=== PATIENT | male | born 1995 | race Two or more races ===

== ENCOUNTER 2017-07-19 23:17 | Inpatient (IN) | payer SELFPAY ==
--- NOTE | 2017-07-19 23:27 | EDPHY ---
H & P Stated Complaint: lower back pain, nausea x10 days Time Seen by Provider: 07/19/17 23:27 HPI/ROS: HPI CHIEF COMPLAINT: Low back pain times 10 days. HISTORY OF PRESENT ILLNESS: Patient very pleasant 21-year-old male, he is otherwise healthy with no significant medical history presents emergency room with low back pain lumbar region. States had this discomfort times 10 days. He states it is worse when he goes to move. Or lay flat. 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 He denies any back injury but states he has had some low back discomfort times 10 days. No fever. No leg weakness. No saddle anesthesia. No bowel bladder incontinence. Patient denies fever. Denies direct back trauma. Denies radiation of pain. Past Medical History: Denies medical history except history of asthma Past Surgical History: Denies surgical history Social History: Denies daily use drugs alcohol tobacco. Family History: Noncontributory ROS REVIEW OF SYSTEMS: A comprehensive 10 point review of systems is otherwise negative aside from elements mentioned in the history of present illness. Exam Constitutional appears well nontoxic no acute distress, triage nursing summary reviewed, vital signs reviewed, awake/alert. Eyes normal conjunctivae and sclera, EOMI, PERRLA. HENT normal inspection, atraumatic, moist mucus membranes, no epistaxis, neck supple/ no meningismus, no raccoon eyes. Respiratory clear to auscultation bilaterally, normal breath sounds, no respiratory distress, no wheezing. Cardiovascular rate normal, regular rhythm, no murmur, no edema, distal pulses normal. Gastrointestinal soft, non-tender, no rebound, no guarding, normal bowel sounds, no distension, no pulsatile mass. Genitourinary no CVA tenderness. Musculoskeletal no significant midline lumbar tenderness on exam, mild tenderness paravertebral both sides, full range of motion, no calf swelling, no tenderness of extremities, no meningismus, good pulses, neurovascularly intact. No leg weakness. No saddle anesthesia. Skin pink, warm, & dry, no rash, skin atraumatic. Neurologic awake, alert and oriented x 3, AAOx3, moves all 4 extremities equally, motor intact, sensory intact, CN II-XII intact, normal cerebellar, normal vision, normal speech. Psychiatric normal mood/affect. Heme/Lymph/Immune no lymphadenopathy. Differential Diagnosis: Includes but is not limited to in a particular order lumbar back strain, annular tear, disc herniation, compression fracture, musculoskeletal strain, back strain, urinary tract infection Medical Decision Making: Plan for this patient lumbar spine x-ray, ibuprofen 800 mg, and check urinalysis re-evaluate. Re-evaluation: 1238AM: Lumbar spine reviewed of the back. No evidence of malalignment or compression fracture. Urinalysis reveals no signs of infection. He received 800 mg of p. o. Motrin is feeling much better. Will prescribe him 800 Motrin. Recommend ice pack, rest, no heavy lifting. Additionally should return emergency room if he has worsening symptoms includes worsening pain fever vomiting questions or concerns. Clinical exam is concerning for a musculoskeletal low back pain. Source: Patient - Personal History Current Tetanus/Diphtheria Vaccine: Yes Tetanus Vaccine Date: 2012 - Medical/Surgical History Hx Asthma: Yes Hx Chronic Respiratory Disease: No Hx Diabetes: No Hx Cardiac Disease: No Hx Renal Disease: No Hx Cirrhosis: No Hx Alcoholism: No Hx HIV/AIDS: No Hx Splenectomy or Spleen Trauma: No Other PMH: healthy - Social History Smoking Status: Never smoked Constitutional: Initial Vital Signs Temperature (C) 36.8 C 07/19/17 23:19 Heart Rate 102 H 07/19/17 23:19 Respiratory Rate 16 07/19/17 23:19 Blood Pressure 153/85 H 07/19/17 23:19 O2 Sat (%) 95 07/19/17 23:19 O2 Delivery Mode Room Air Allergies/Adverse Reactions: No Known Allergies Allergy (Unverified 05/09/10 09:38) Home Medications: Medication Instructions Recorded Ibuprofen [Motrin (*)] 800 mg PO Q6-8PRN #10 tab 07/19/17 Medical Decision Making - Diagnostics Imaging Results: Imaging Impressions Lumbar Spine X-Ray 07/19/17 23:35 Impression: No evidence for acute osseous abnormality lumbar spine. - Data Points Laboratory Results: 07/19/17 23:45 Urine Color YELLOW Urine Appearance CLEAR Urine pH 6.0 (5.0-7.5) Ur Specific Gracey 1.025 (1.002-1.030) Urine Protein NEGATIVE (NEGATIVE) Urine Ketones NEGATIVE (NEGATIVE) Urine Blood 2+ H (NEGATIVE) Urine Nitrate NEGATIVE (NEGATIVE) Urine Bilirubin NEGATIVE (NEGATIVE) Urine Urobilinogen 2.0 EU H EU (0.2-1.0) Ur Leukocyte Esterase NEGATIVE (NEGATIVE) Urine RBC 15-25 /hpf H /hpf (0-3) Urine WBC 1-3 /hpf /hpf (0-3) Ur Epithelial Cells NONE SEEN /lpf /lpf (NONE-1+) Urine Glucose NEGATIVE (NEGATIVE) Medications Given: Discontinued Medications Ibuprofen (Motrin) 800 mg PO EDNOW ONE Stop: 07/19/17 23:36 Last Admin: 07/19/17 23:44 Dose: 800 mg Departure - Departure Disposition: Home, Routine, Self-Care Clinical Impression: Back strain Qualifiers: Encounter type: initial encounter Qualified Code(s): S39.012A - Strain of muscle, fascia and tendon of lower back, initial encounter Condition: Good Instructions: Low Back Strain (ED) Additional Instructions: 1. Recommend you ice her back. Anti-inflammatory pain medicine as needed for pain control. 2. Return emergency room if you have worsening symptoms. 3. Take it easy over the next week. No heavy lifting. Referrals: NONE *PRIMARY CARE P,. [Primary Care Provider] - As per Instructions Prescriptions: Ibuprofen [Motrin (*)] 800 mg PO Q6-8PRN #10 tab
[2017-07-19] MEDS ORDERED: IBUPROFEN 800 MG TAB PO ONE (23:35)
[2017-07-20] MEDS ORDERED: NS 1,000 ML IV ONE (01:21)
[2017-07-20 01:51] LABS: PLATELET COUNT 83 10^3/uL (150-400)
[2017-07-20 01:59] LABS: INR 1.18 (0.83-1.16); PROTIME(PATIENT) 15.2 SEC (12.0-15.0)
[2017-07-20] MEDS ORDERED: ERTAPENEM 1 GM VIAL IV ONE (02:39)
[2017-07-20] MEDS ORDERED: HYDROmorphONE/DILAUDID 1 MG/ML INJ IVP PRN (05:06)
[2017-07-20] MEDS ORDERED: D5W 1/2 NS 1,000 ML IV SCH (05:30)
[2017-07-20 07:48] LABS: PLATELET COUNT 78 10^3/uL (150-400)
--- NOTE | 2017-07-20 11:14 | SOAPPROG ---
SOAP Progress Note Assessment/Plan: Assessment/Plan: 21 Y M admitted with progressive back pain x 10 days, free air , likely pneumatosis intestinalis. No bowel wall thickening. Elevated WBCs, elevated hepatic transaminases, normal bilirubin. +RBCs on UA. Abdominal exam is benign. Afebrile. Back pain improved. Doubt need for surgery. Continue clears for now. Will need to discuss further with Dr. Patricio. Consider medicine consult given lab abnormalities. Seen and examined by Dr. Patricio on admit earlier hours of the morning. S: no back or belly pain. no fevers or chills. no n/v. no dysuria. denies trauma. O: alert, nad no jaundice ctab rrr abd soft, nt, +BS 07/20/17 11:11 Objective: Vital Signs Temp Pulse Resp BP Pulse Ox 36.6 C 84 14 119/82 H 95 07/20/17 08:00 07/20/17 08:00 07/20/17 08:00 07/20/17 08:00 07/20/17 08:00 Laboratory Results 07/20/17 07:35 07/19/17 07/20/17 07/21/17 05:59 05:59 05:59 Intake Total 1050 Balance 1050 PT 15.2 SEC (12.0-15.0) H 07/20/17 01:30 INR 1.18 (0.83-1.16) H 07/20/17 01:30 ICD10 Worksheet Patient Problems: Problems Problem Status Onset Back strain Acute
[2017-07-20] MEDS ORDERED: IOPAMIDOL (ISOVUE-300) 100 ML BTL ONE (14:58)
[2017-07-20 16:35] LABS: PLATELET COUNT 79 10^3/uL (150-400)
[2017-07-20 16:48] LABS: INR 1.18 (0.83-1.16); PROTIME(PATIENT) 15.2 SEC (12.0-15.0)
[2017-07-20 17:01] LABS: HEPATITIS B SURFACE ANTIGEN NEGATIVE (NEGATIVE)
[2017-07-20 17:06] LABS: HEPATITIS A ANTIBODY IGM (BCH) NEGATIVE (NEGATIVE); HEPATITIS B CORE AB IGM NEGATIVE (NEGATIVE)
--- NOTE | 2017-07-20 17:15 | ASMTCMCOM ---
CM Note CM Note Notes: 07/20/2017 Case Management Note Discussed case with RN and Divina from [facility]. Pt admitted for pneumotosis and back pain for the last 10 days. Pt was screened for Medicaid and will provide income amount to [facility] to complete the application. Pt lack of insurance will limit d/c supports and resources. 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 Case Management d/c poc: independent with follow up as directed. Case Management available if needs change. Date Signed: 07/20/2017 02:52 PM Electronically Signed By:Vicky Masters RN
[2017-07-20 17:18] LABS: HEPATITIS C ANTIBODY TOTAL NEGATIVE (NEGATIVE)
--- NOTE | 2017-07-20 17:41 | PDGENHP ---
History & Physical Chief Complaint: back pain History of Present Illness: male with free air in pericecal area RLQ opposite from his vague back pain. wbc 24k but no fever, some diarhea over nite but no emesis or trauma. no other family members sick. admit for obs but no present tenderness. risks and options fully discussed Pertinent Past, Social, Family History: pmh: negative with no hospitalizations or surgery. fam hx noncontributory. meds none. NKA. ROS: - on full 10 point review/ nonsmoker/ no weight loss or nite sweats Relevant Physical Exam: gen healthy 21 male in no acute distress, afebrile. heent nonicteric/ perrla/no nodes, no oral lesions. neck supple, nontender and no thyromegaly. cor rr. chest clear. abd soft, nontender with +bs, no ernias. gen: wnl. extrem full rom and pulses, no adenopathy. neuro symmetric. psych lert, oriented, cooperative Cardiorespiratory Assessment: imp: free air probably 2/2 pneumatosis of uncertain etiology. no peritonitis. plan admit for obs and IM consult
[2017-07-20 17:42] LABS: HIV TYPE 1 AND 2 NEGATIVE (NEGATIVE)
--- NOTE | 2017-07-20 18:46 | GCON ---
[f rep st] CONSULTATION INTERNAL MEDICINE CONSULTATION DATE OF CONSULTATION: 07/20/2017 REFERRING PHYSICIAN: Francis Patricio MD REASON FOR REFERRAL: Evaluation of abnormal CBC. HISTORY OF PRESENT ILLNESS: The patient is a healthy 21-year-old man. He has had about a week-to-10 days of malaise and myalgias. He said 10 days ago he started feeling bad. He started having some l ow back pain, primarily at night while he was sleeping. He was been more fatigued than usual over e past week. He has also noted some mild shoulder discomfort and some abdominal discomfort. He has had positive fevers and chills intermittently, but has not actually taken his temperature. He has dodd d no weight changes, no night sweats, no headache, no vision, hearing, or speech issues. He denies a ny chest pain. He did have an episode of shortness of breath the other day. No diarrhea or urinary symptoms. No other joint swelling or pain. No other neurologic signs or symptoms. Patient came to the hospital and had a CT of his abdomen and pelvis done, which did show some pneumat osis and was admitted by General Surgery for observation. His abdominal exam has been overall benign , and they are just observing him and started feeding him today. REVIEW OF SYSTEMS: A 10-point review of systems was done and is negative except as stated in the HPI . PAST MEDICAL HISTORY: Negative. PAST SURGICAL HISTORY: Negative. MEDICATIONS: None. FAMILY HISTORY: Negative. SOCIAL HISTORY: He is single. 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 He does not smoke. He drinks about 3 beers per day only on the weekends. He does not smok e marijuana or use any other recreational drugs. PHYSICAL EXAMINATION: VITAL SIGNS: Afebrile. Heart rate 84 blood pressure 119/92, respirations 14, 95% in room air. GENERAL: A very well-developed, well-nourished 21-year-old man in no distress. A lert and oriented. Speech is fluent. HEENT: Pupils are equal. Extraocular movements intact. Muco us membranes are moist. Oropharynx is clear. NECK: Supple. No adenopathy. HEART: Regular rate a nd rhythm. No murmur, gallop, or rub. LUNGS: Clear to auscultation. No wheeze, rhonchi, or rales. LYMPHATICS: No axillary or inguinal lymph nodes noted. ABDOMEN: Soft. He has some very mild ten derness in the left upper quadrant and diffusely, but no guarding or rebound. EXTREMITIES: No clubb ing, cyanosis, or edema. : Normal testicles without masses. MUSCULOSKELETAL: No joint deformiti es, effusions, or pain. SKIN: Intact. No rash. PSYCHOLOGIC: Normal. LABORATORY DATA: CBC shows a white count of 25.23, hemoglobin normal, platelet count low at 78; neut rophils, 5.5% with 80.2% lymphocytes, and 3+ atypical lymphocytes. Smear review by pathology noted a bout 35% blasts and abnormal lymphocytes. Coags are normal. Chemistry shows normal electrolytes and renal function. LFT show an AST of 75 and an ALT of 171. Urinalysis is positive for some hematuria . Abdominal and pelvic CT scan showed pneumatosis of an otherwise unremarkable ascending colon and a sm all amount of adjacent free air with nonspecific adenopathy and splenomegaly, and an enlarged and fat ty liver. ASSESSMENT AND PLAN: A 21-year-old presents with diffuse myalgias, low back pain, and some abdominal discomfort with an abnormal CT scan and CBC. Upon further review of the CBC, the patient has a sign ificant number of blasts and abnormal lymphocytes and a possibility of acute lymphocytic leukemia. I discussed the case in detail with Dr. Courtney Pike on-call with Hematology. She will see the patie nt in consultation. In the meantime, I will order some further testing. I will get tumor lysis labs , including LDH, uric acid, and phosphorus. I will check a DIC panel. I will check viral titers inc luding hepatitis B and C, HIV, CMV, and EBV. I will check a flow cytometry, and I will also check a CT of the chest to look for any mediastinal masses. I did discuss this briefly with the patient. He is aware of the possible diagnosis and is agreeable with the plan. Thank you for the consultation. I will continue to follow along with the patient. Warning signs wou ld be for worsening infection. Will need to watch for any signs of fever or neurologic signs or symp toms to consider an MRI of the brain. /[id number]/MODL
--- NOTE | 2017-07-21 07:53 | SOAPPROG ---
SOAP Progress Note Assessment/Plan: Assessment/Plan: 21 Y M admitted with progressive back pain x 10 days, free air , likely pneumatosis intestinalis. No bowel wall thickening. Elevated WBCs, elevated hepatic transaminases, normal bilirubin. +RBCs on UA. Abdominal exam continues to be benign. Will advance to regular diet. Appreciate medicine input and involvement of oncology. Possibly ALL. Will continue to follow but may ask medicine to take over primary care for this stay. Available for port if needed. Doubt need for abdominal surgery. S: no back or belly pain. no fevers or chills. passing gas. O: alert, nad no jaundice ctab rrr abd soft, nt, +BS 07/21/17 07:51 Objective: Vital Signs Temp Pulse Resp BP Pulse Ox 36.7 C 96 14 132/82 H 94 07/21/17 07:16 07/21/17 07:16 07/21/17 07:16 07/21/17 07:16 07/21/17 07:16 Laboratory Results 07/20/17 16:15 07/20/17 07/21/17 07/22/17 05:59 05:59 05:59 Intake Total 1050 3200 Balance 1050 3200 PT 15.2 SEC (12.0-15.0) H 07/20/17 16:15 INR 1.18 (0.83-1.16) H 07/20/17 16:15 ICD10 Worksheet Patient Problems: Problems Problem Status Onset Back strain Acute
[2017-07-21] MEDS ORDERED: LIDOCAINE 1% 5 ML SDV NB ONE (10:45)
[2017-07-21 10:55] LABS: PLATELET COUNT 81 10^3/uL (150-400)
[2017-07-21] MEDS ORDERED: LORazepam 2 MG/ML INJ ONE ×2 (11:34→11:37)
--- NOTE | 2017-07-21 11:40 | GCON ---
[f rep st] CONSULTATION NEW PATIENT CONSULT REFERRING PHYSICIAN: Reynold Sullivan MD REASON FOR CONSULTATION: Abnormal CBC with evidence of blasts on peripheral smear. HISTORY OF PRESENT ILLNESS: The patient is a very pleasant 21-year-old gentleman with no significant past medical history, who presented to the emergency room on 07/19/2017 with complaints of low back pain. On his workup, he had a lumbar spine x-ray, which showed no evidence for acute osseous abnormality. He then had an abdominal/pelvis CT, probably due to the description of the pain, which showed pneumatosis of the otherwise unremarkable ascending colon, with a small amount of adjacent free air. Nonspecific adenopathy was noted, as well as splenomegaly and large fatty liver. Surgery was consulted. The pain seemed actually localized on the opposite side of the abdomen. He reported this back pain for 10 days and denies any diarrhea or constipation. Surgery felt consistent with pneumatosis intestinalis, no bowel wall thickening, but on workup, he was noted to have an abnormal CBC. The most recent CBC from yesterday shows a white blood cell count of 25,000. Hemoglobin is normal at 14.3, hematocrit 40.9, MCV of 86, platelet count of 78, 000. He had elevated lymphocytes initially, and yesterday on peripheral blood smear review, he was noted to have 35% blasts. Pathology review showed abnormal lymphocytes. We checked a DIC panel, which is essentially normal. Fibrinogen 367. Lactic acid 1.5. He does have an elevated uric acid at 9.8. Sodium and potassium are normal. Phos is a little up at 5. Total bilirubin 0.8, AST 75, ALT 171. His LDH was 2152. His urinalysis shows 2+ blood and 15-25 RBCs. Cytology is currently pending, as well as hepatitis panel, HIV, and CMV antibodies. EBV titers pending as well. The patient denies any recent illnesses. On review of systems, the patient denies any neurologic symptoms. Specifically , no visual changes, confusion, or headaches. He has had an intermittent cough , but denies production. He also reports increased shortness of breath. He did have vomiting this morning x1, but denies chronic nausea or vomiting. Denies chronic constipation or diarrhea. He denies any testicular mass and denies any current rashes. He does note to me that on a couple occasions he has awoke with drenching night sweats, but denies any fevers. PAST MEDICAL HISTORY: Essentially none. FAMILY HISTORY: Had a great aunt with breast cancer and a great uncle with lung cancer. SOCIAL HISTORY: He drinks occasionally on the weekends, about 5 beers over the weekend, but otherwise is not a heavy drinker. No tobacco or illicit drug use. 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 He lives in a trailer home in [facility] and currently is without insurance. MEDICATIONS: He takes no medications on a daily basis. PHYSICAL EXAM: VITAL SIGNS: Blood pressure 132/82, heart rate 96, respiration rate 14, O2 saturation 94% on room air. Temp is 36.7. He has been afebrile while here. GENERAL: He is a 21-year-old gentleman, robust appearing, not in acute distress. HEENT: Anicteric. He has some mild petechiae under his eyes that he thinks occurred after vomiting this morning. Otherwise, oropharynx is clear, without petechiae or other findings. HEART: Regular rate and rhythm. LUNGS: Clear to auscultation bilaterally. ABDOMEN: Soft, nontender. He does have an enlarged spleen, about 3 or 4 cm below the costophrenic margin. Liver was difficult to palpate, but I do not think this was markedly enlarged. Bowel sounds are positive. No rebound or guarding. EXTREMITIES: Lower extremities show no significant edema. NEUROLOGIC: Nonfocal. A and O x3. Moving all his extremities. Answering questions appropriately. : Exam shows normal male penis and normal testicles, right and left, with no abnormal mass. SKIN: No rash or petechiae. LABS: As mentioned above. ASSESSMENT: A 21-year-old gentleman with no significant past medical history, who presented with nonspecific low back pain. On routine workup, he was found to have an abnormal CBC with atypical lymphocytes and an increased amount of blasts on his peripheral smear concerning for acute leukemia. Further CT imaging with CT chest done yesterday shows moderate mediastinal lymphadenopathy measuring 2.3 x 2.1 cm. He also has mildly prominent bilateral axillary nodes. The constellation of the adenopathy, abnormal CBC, and fatigue, as well as bone pain is very concerning for acute lymphoblastic leukemia. Certainly, we cannot be assured of this until we get flow back or more characterization by bone marrow, which will be done today. He does have viral serologies pending, including hepatitis, HIV, and CMV. EBV is also pending, but I think this is highly unlikely to be acute mono given the other above-mentioned symptoms. In addition, his LDH and uric acid are elevated. PLAN: Plan at this time will be an expedited workup. He will be started on allopurinol today, 300 mg p.o. b.i.d., and will initiate steroids after bone marrow biopsy is done. Will continue IV fluid for aggressive hydration to keep urinary output at least 100 cc an hour. He will need a PICC line placed and an echocardiogram. I think we can possibly hold off on the PICC line until at least flow comes back positive for clonal population of cells. Bone marrow biopsy will be sent for comprehensive diagnostic testing, including cytogenetics and FISH testing. 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 We will continue to monitor back pain and consider imaging there if it recurs or continues. About 45 minutes was spent with patient and family, more than 50% of time counseling and coordinating care. /[id number]/MODL MTDIsacc
[2017-07-21] MEDS ORDERED: LORazepam 2 MG/ML INJ IVP ONE (12:00)
[2017-07-21] MEDS: ALLOPURINOL 300 MG TAB PO SCH ×2 (12:34→20:16)
--- NOTE | 2017-07-21 14:03 | ASMTCMCOM ---
CM Note CM Note Notes: Chart reviewed. Patient has pending bone marrow as suspicion exists for hematological malignancy.He is currently undergoing diagnostics. Plan to transfer to Oncology today. CM to follow. Needs: TBD Date Signed: 07/21/2017 02:02 PM Electronically Signed By:Gilma Lockhart RN
[2017-07-21] MEDS: NS 1,000 ML IV SCH ×2 (14:45→20:16)
--- NOTE | 2017-07-21 16:26 | ECHO ---
[email or web address] [address] [address] Main: [phone] Fax: Transthoracic Echocardiogram Name: KAYLEE STEWART MR#: [id number] Study Date: 07/21/2017 Study Time: 02:23 PM Date of : 1995 Age: 21 year(s) Height: 182.9 cm (72 in.) Weight: 97.52 kg (215 lb.) BSA: 2.2 m2 Gender: Male Examination: Echo Indication: baseline EF for leukemia induction Image Quality: Adequate Contrast: Requested by: Courtney Pike BP: 132 mmHg/82 mmHg Heart Rate: Rhythm: Indication: baseline EF for leukemia induction Procedure Staff Interpreter Translator: Rosaline Angulo RDCS Reading Physician: Requesting Provider: Measurements: Chambers Valvular Assessment AV/MV Valvular Assessment TV/PV Normal Normal Normal Name Value Range Name Value Range Name Value Range Ao Marissa (2D): 2.7 cm (1.4 cm-2.6 AV meanP mmHg ( - ) PV Vmax: 1.48 m/s (0.6 m/s-0.9 cm) KARIME (VTI): 2.6 cm ( - ) m/s) IVSd (2D): 0.8 cm (0.6 cm-1.1 MV E Vmax: 0.80 m/s ( - ) PV PGmax: 9 mmHg ( - ) cm) MV A Vmax: 0.68 m/s ( - ) LVDd (2D): 4.6 cm (4.2 cm-5.9 MV E/A: 1.18 ( - ) cm) MV PHT: 0.054 s ( - ) LVDs (2D): 2.9 cm (2.1 cm-4 cm) MVA (PHT): 4.1 s ( - ) LVPWd (2D): 0.8 cm (0.6 cm-1 cm) LVOTd 1.9 cm 1.9 cm mm LVEF (BP): 59 % (>=55 %) RVDd(2D): 2.4 cm (1.9 cm-3.8 cmmm) Continued Measurements: Chambers Valvular Assessment AV/MV Valvular Assessment TV/PV Name Value Name Value Name Value LADs: 3.1 cm MV DecTime: 197 m/s CVP (est.): 5 mmHg LADs Lon.9 cm MV E' Septal: 0.13 m/s LA Area: 12.8 cm2 MV E/E' Septal: 6.30 LA Volume: 33 ml MV E/E' Lateral: 5.10 LA Volume Index: 15.0 ml/m2 RA Area: 14.2 cm2 Patient: KAYLEE STEWART Study Date: 07/21/2017 Page 1 of 2 02:23 PM Additional Vessels Name Value Ao Ascendin.5 cm Inferior Vena Cava: 1.5 cm Findings: Left Ventricle: Normal size left ventricle. No LV hypertrophy. Normal global systolic LV function. EF is 59 %. No regional wall motion abnormality. Normal diastolic LV function. Right Ventricle: Normal size right ventricle. Normal RV function. Left Atrium: The left atrium is normal in size. Right Atrium: The right atrium is normal in size. Mitral Valve: The mitral valve is normal in appearance and function. Mild mitral valve regurgitation is present. No mitral stenosis is present. Aortic Valve: The aortic valve is normal in appearance and function. There is no aortic valve regurgitation. No aortic valve stenosis is present. Tricuspid Valve: The tricuspid valve is normal in appearance and function. Trivial tricuspid valve regurgitation. Pulmonic Valve: The pulmonic valve is normal in appearance and function. There is no pulmonic regurgitation seen. Aorta: The aorta is normal. Normal size aortic root measuring 2.7 cm. Normal size ascending aorta measuring 2.5 cm. IVC: The IVC is normal sized. Pericardium: No pericardial effusion. No pleural effusion. (No Signature Object) Patient: KAYLEE STEWART Study Date: 07/21/2017 Page 2 of 2 02:23 PM [id number]
--- NOTE | 2017-07-21 19:57 | HOSPPROG ---
Hospitalist Progress Note Assessment/Plan: Assessment: 21-year-old male presents with acute back pain, new diagnosis of hematologic malignancy Plan: 1. Hematologic malignancy. Acute, new problem this provider, further workup indicated. Evidenced by mediastinal lymphadenopathy, splenomegaly, hepatomegaly on chest CT, personally interpreted, as well as blasts on CBC -discussed with Dr. Courtney Pike, consultation appreciated, she reports that is likely the patient either has AML or ALL, and she has performed a bone marrow biopsy today to determine the exact type of myeloproliferative disorder -counseled patient and his family regarding this diagnosis as well as ongoing workup, and further treatment 2. Acute tumor lysis syndrome. Evidenced by elevated LDH, elevated uric acid, elevated phosphorus level -monitor laboratory values closely -initiate IV normal saline at 200 cc/hour -is a high risk condition needs close monitoring in the inpatient setting 3. Pneumatosis. Acute finding on abdominal CT on presentation, unclear whether this was the cause of his presenting back pain or an incidental finding -discussed with General surgery, they do not feel like the patient has a surgical abdomen and would like to transfer the patient's care from surgery service to Medicine, we will comply Diet. Regular Prophylaxis. High risk patient, Lovenox 40 Code. Full Disposition. Anticipated discharge uncertain, patient requires treatment for tumor lysis syndrome as well as likely initiation of chemotherapy for new diagnosis of myeloproliferative disorder. Subjective: no pain Objective: Vital Signs Temp Pulse Resp BP Pulse Ox 36.8 C 101 H 15 137/82 H 93 07/21/17 19:22 07/21/17 19:22 07/21/17 19:22 07/21/17 19:22 07/21/17 19:22 Laboratory Results 07/21/17 09:59 07/21/17 09:59 07/20/17 07/21/17 07/22/17 05:59 05:59 05:59 Intake Total 1050 3200 1860 Output Total 550 Balance 1050 3200 1310 PT 15.2 SEC (12.0-15.0) H 07/20/17 16:15 INR 1.18 (0.83-1.16) H 07/20/17 16:15 - Physical Exam Constitutional: no apparent distress, appears nourished, not in pain Ears, Nose, Mouth, Throat: moist mucous membranes, hearing normal, ears appear normal, no oral mucosal ulcers Cardiovascular: regular rate and rhythym, no murmur, rub, or gallop, No edema Respiratory: no respiratory distress, no rales or rhonchi, clear to auscultation , No respiratory distress Gastrointestinal: normoactive bowel sounds, soft, non-tender abdomen, hepatosplenomegally, No distension Neurologic: AAOx3 Psychiatric: interacting appropriately, not anxious, not encephalopathic, thought process linear Lymph, Heme, Immunologic: other (non-tender cervical LAD, no supraclavicular LAD ) ICD10 Worksheet Patient Problems: Problems Problem Status Onset Back strain Acute
[2017-07-22] MEDS: NS 1,000 ML IV SCH ×3 (01:09→23:48)
[2017-07-22] MEDS ORDERED: oxyCODONE IR 5 MG TAB PO PRN (03:54)
[2017-07-22] MEDS ORDERED: HYDROmorphONE/DILAUDID 1 MG/ML INJ IVP PRN (03:55)
[2017-07-22 05:41] LABS: PLATELET COUNT 75 10^3/uL (150-400)
[2017-07-22] MEDS: ALLOPURINOL 300 MG TAB PO SCH ×2 (08:37→22:28)
--- NOTE | 2017-07-22 08:51 | SOAPPROG ---
SOAP Progress Note Assessment/Plan: Assessment/Plan: 21 yo gentleman admitted w nonspecific low back pain CT abdomen showed pneumatosis og unclear etiology but CBC worrisome for atypical lymphocytes/increased blasts 1. Abnormal CBC - concern for acute leukemia vs lymphoma, specifically may be ALL w splenomegaly, mediastinal LAD, bone pain Bone marrow done yesterday and sent for comprehensive testing No acute EBV infection CMV+ so in future if needs blood products, will need to be irradiated but NOT CMV negative Hepatitis panel -ve Echo ok Pending flow to make preliminary dx LDH and uric acid elevated Cont allopurinol and IVF (can decrease to 100ml/hr) start pred 100mg daily today check tumor lysis labs daily (Phos, UA, CMP, LDH) will need PICC no e/o neuro involvement If ALL, plan pediatric protocol CALGB 08864 and admission will be lengthy given lack of insurance 2. left sided rib pain - CT chest done shows no destructive lesions started after echo yesterday VSS consider CXR today ?referred pain 3. thrombocytopenia - due to #1 Updates pt and mother today - still waiting for a final Dx 07/22/17 08:56 Subjective: Started to have left sided rib pain at 8pm yesterday "hurts to breath" Objective: Vital Signs Temp Pulse Resp BP Pulse Ox 37.4 C 96 16 120/79 94 07/22/17 08:06 07/22/17 08:06 07/22/17 08:06 07/22/17 08:06 07/22/17 08:06 Laboratory Results 07/22/17 05:15 07/22/17 05:15 07/21/17 07/22/17 07/23/17 05:59 05:59 05:59 Intake Total 3200 4554 Output Total 2600 Balance 3200 1954 PT 15.2 SEC (12.0-15.0) H 07/20/17 16:15 INR 1.18 (0.83-1.16) H 07/20/17 16:15 Gen - NAD HEENT - anicteric, no OP lesions CV - RRR Chest - CTAB, TTP over left lower ribcage Abd - softm NT, enlarged spleen Ext - no sig edema Neuro - nonfocal ICD10 Worksheet Patient Problems: Problems Problem Status Onset Back strain Acute
[2017-07-22] MEDS ORDERED: predniSONE 20 MG TAB PO SCH (09:00)
--- NOTE | 2017-07-22 10:34 | PDMN ---
Medical Necessity Medical necessity: Patient meets inpatient criteria per physician note and [facility] Medical Oncology [facility] (acute tumor lysis syndrome/elevated LDH, uric acid and phosphorus; acute hematologic malignancy/mediastinal lymphadenopathy, splenomegaly, hepatomegaly on chest CT and blasts on CBC; ongoing tachycardia; LOS > 2 midnights for IV NS at 200ml/hr; pending bone marrow results for likely ALL or AML with likely initiation of chemotherapy.)
--- NOTE | 2017-07-22 15:04 | ASMTCMCOM ---
CM Note CM Note Notes: Pt has a likely new hematological disorder. Bone marrow biopsy not back yet. Pt speaks [place] but his mother does not and prefers an light rail vehicle operator. Current plan is for pt to remain at [facility] for his 1st round of chemo. [facility] was brieflly considered but decision made to remain at [facility]. It is unclear if pt will qualify for emergency Medicaid. He needs to submit his next pay stub before decision made. Onc navigator Judith Hussein is working on getting a quirino for pt to cover his chemo expenses. Pt's name will also be submitted for a [employer] quirino. CM will contiue to follow to provide support and resources. Date Signed: 07/22/2017 03:03 PM Electronically Signed By:Jaida Valdivia LCSW
[2017-07-22] MEDS: LIDOCAINE 4%/MENTHOL 1% PATCH TD SCH (16:10)
--- NOTE | 2017-07-22 17:53 | HOSPPROG ---
Hospitalist Progress Note Assessment/Plan: Assessment: 21-year-old male presents with acute back pain, new diagnosis of hematologic malignancy Plan: 1. ALL. Based on BmBx results, hepatomegaly on chest CT -discussed with Dr. Courtney Pike, she reports extensive work today to determine best location of care for this patient, and it appears that he will best be served w/ chemotherapy at [facility], recommends port placement (d/w Dr. Patricio ) and likely initiation immediately thereafter 2. Acute tumor lysis syndrome. Evidenced by elevated LDH, elevated uric acid, elevated phosphorus level -monitor daily laboratory values closely -adjust NS to 100cc/hr -s/p pred 100mg today, allopurinol 3. Acute chest pain. New problem to this provider, further w/u indicated. Left side, suspect this is 2/2 muscular hematoma s/p echo probe, but w/ high-rate IVF need to r/o overload -CXR (personally interpreted) does not demonstrate CHF -given that his pain is reproducible on exam, and has responded to heat, recommend heat pad + lidoderm patch -CT w/ contrast (not a CTA) did not demonstrate PE, but if he becomes tachypneic or hypoxic, would rec CTA Diet. Regular Prophylaxis. High risk patient, Lovenox 40 Code. Full Disposition. 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 Subjective: ongoing L chest pain Objective: Vital Signs Temp Pulse Resp BP Pulse Ox 37.0 C 95 17 128/85 H 93 07/22/17 15:27 07/22/17 15:27 07/22/17 15:27 07/22/17 15:27 07/22/17 15:27 Laboratory Results 07/22/17 05:15 07/22/17 05:15 07/21/17 07/22/17 07/23/17 05:59 05:59 05:59 Intake Total 3200 4554 1000 Output Total 2600 1700 Balance 3200 1954 -700 PT 15.2 SEC (12.0-15.0) H 07/20/17 16:15 INR 1.18 (0.83-1.16) H 07/20/17 16:15 - Physical Exam Constitutional: no apparent distress, uncomfortable, No not in pain (mild), No chronically ill appearing Cardiovascular: tachycardia, No systolic murmur, No irregularly irregular, No edema Respiratory: no respiratory distress, no rales or rhonchi, clear to auscultation Gastrointestinal: normoactive bowel sounds, soft, non-tender abdomen, no palpable masses Skin: other (no ecchymoses L chest), No abrasion, No erythema, No rash Musculoskeletal: other (focal tenderness L intercostal, no pectoralis tenderness , full ROM R shoulder) Neurologic: AAOx3 Psychiatric: interacting appropriately, not anxious, not encephalopathic, thought process linear ICD10 Worksheet Patient Problems: Problems Problem Status Onset Back strain Acute
[2017-07-22] MEDS ORDERED: ceFAZolin 2 GM/SWFI 2 GM/20 ML SYR IVP ONE (18:29)
--- NOTE | 2017-07-22 18:29 | SOAPPROG ---
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 As discussed with Dr. Pike 07/22/17 18:28 Objective: Vital Signs Temp Pulse Resp BP Pulse Ox 37.0 C 95 17 128/85 H 93 07/22/17 15:27 07/22/17 15:27 07/22/17 15:27 07/22/17 15:27 07/22/17 15:27 Laboratory Results 07/22/17 05:15 07/22/17 05:15 07/21/17 07/22/17 07/23/17 05:59 05:59 05:59 Intake Total 3200 4554 1000 Output Total 2600 1700 Balance 3200 1954 -700 PT 15.2 SEC (12.0-15.0) H 07/20/17 16:15 INR 1.18 (0.83-1.16) H 07/20/17 16:15 ICD10 Worksheet Patient Problems: Problems Problem Status Onset Back strain Acute
[2017-07-22] MEDS ORDERED: PATCH REMOVAL 1 EA PATCH TD SCH (21:00)
[2017-07-23 05:19] LABS: PLATELET COUNT 89 10^3/uL (150-400)
[2017-07-23] MEDS ORDERED: LR 1,000 ML IV ONE (07:57)
[2017-07-23] MEDS ORDERED: BUPIVACAINE 0.5% 30 ML SDV ONE (07:58)
[2017-07-23] MEDS ORDERED: ceFAZolin 2 GM/SWFI 20 ML SYR IVP ONE (08:07)
[2017-07-23] MEDS ORDERED: MIDAZOLAM 2 MG/2 ML VIAL IVP ONE (08:52)
--- NOTE | 2017-07-23 08:52 | PDHPUP ---
History & Physical Update H&P update statement: This history and physical update is based on an assessment of the patient which was completed after admission or registration (within 24 hours), but prior to the surgery/procedure. H&P update: H&P reviewed & patient examined, no change in patient's condition since H&P completed
--- NOTE | 2017-07-23 08:53 | PDANEPAE ---
ANE Past Medical History - Pulmonary History Hx Oxygen in Use at Home: No Hx Sleep Apnea: No Sleep Apnea Screening Result - Last Documented: Negative - Endocrine History Hx Diabetes: No ANE Review of Systems Review of Systems: ANE Patient History - Allergies Allergies/Adverse Reactions: No Known Allergies Allergy (Unverified 05/09/10 09:38) - NPO status NPO Since - Liquids (Date): 07/22/17 NPO Since - Liquids (Time): 23:00 NPO Since - Solids (Date): 07/22/17 NPO Since - Solids (Time): 19:00 - Anes Hx Anes Hx: no prior problems - Smoking Hx Smoking Status: Never smoked ANE Labs/Vital Signs - Labs Result Diagrams: 07/23/17 04:12 07/23/17 04:12 - Vital Signs Blood Pressure: 127/71 Heart Rate: 89 Respiratory Rate: 16 O2 Sat (%): 95 Height: 182.88 cm Weight: 97.7 kg ANE Physical Exam - Airway Neck exam: FROM Mallampati Score: Class 1 Mouth exam: normal dental/mouth exam - Pulmonary Pulmonary: no respiratory distress, no rales or rhonchi, clear to auscultation - Cardiovascular Cardiovascular: regular rate and rhythym, no murmur, rub, or gallop - ASA Status ASA Status: III ANE Anesthesia Plan Anesthesia Plan: GA with mask
[2017-07-23] MEDS ORDERED: PROPOFOL 200 MG/20 ML VIAL ONE ×3 (08:56→09:33)
[2017-07-23] MEDS ORDERED: fentaNYL 100 MCG/2 ML INJ ONE (08:56)
[2017-07-23] MEDS ORDERED: predniSONE 20 MG TAB PO SCH (09:00)
[2017-07-23] MEDS ORDERED: ONDANSETRON 4 MG/2 ML VIAL IVP PRN (09:00)
[2017-07-23] MEDS ORDERED: NALOXONE HCL 0.4 MG/ML INJ IVP PRN (09:00)
[2017-07-23] MEDS ORDERED: oxyCODONE IR 5 MG TAB PO PRN (09:00)
[2017-07-23] MEDS ORDERED: fentaNYL 100 MCG/2 ML INJ IVP PRN (09:00)
[2017-07-23] MEDS ORDERED: ACETAMINOPHEN 500 MG TAB PO PRN (09:00)
[2017-07-23] MEDS ORDERED: PROMETHAZINE HCL 25 MG/ML INJ IVP PRN (09:00)
[2017-07-23] MEDS ORDERED: LR 500 ML IV PRN (09:00)
[2017-07-23] MEDS ORDERED: SODIUM BICARBONATE 10 MEQ/10 ML SYR IVP ONE (09:03)
[2017-07-23] MEDS: LIDOCAINE 1% 300 MG/30 ML SDV ONE ×2 (09:28→10:11)
--- NOTE | 2017-07-23 09:29 | SOAPPROG ---
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 As discussed with Dr. Pike 07/22/17 18:28 07/23/17 09:06 DOING OK. ABD SOFT, NONTENDER/ AFEBRILE/ FOR PORT TODAY/ RISKS AND OPTIONS FULLY DISCUSSED Objective: Vital Signs Temp Pulse Resp BP Pulse Ox 36.6 C 89 16 127/71 H 95 07/23/17 05:57 07/23/17 08:53 07/23/17 08:53 07/23/17 08:53 07/23/17 08:53 Laboratory Results 07/23/17 04:12 07/23/17 04:12 07/22/17 07/23/17 07/24/17 05:59 05:59 05:59 Intake Total 4554 1000 Output Total 2600 3100 Balance 1954 -2100 PT 15.2 SEC (12.0-15.0) H 07/20/17 16:15 INR 1.18 (0.83-1.16) H 07/20/17 16:15 ICD10 Worksheet Patient Problems: Problems Problem Status Onset Back strain Acute
[2017-07-23] MEDS ORDERED: BACITRACIN ZINC 14.2 GM OINTTUBE TP ONE (09:54)
--- NOTE | 2017-07-23 09:59 | POSTOPPROG ---
Post Op Note Date of Operation: 07/23/17 Surgeon: Francis Patricio Anesthesiologist: campbell Anesthesia: IV Sedation Pre-op Diagnosis: leukemia Post-op Diagnosis: same Indication: chemo access Procedure: left subclavian port with flouro Findings: good position and flow Inf/Abcess present in the surg proc area at time of surgery?: No Depth: Deep Incisional (Fascial) EBL: Minimal Complications: 0
[2017-07-23] MEDS ORDERED: HYDROCODONE/APAP 5/325 TAB PO PRN (10:02)
--- NOTE | 2017-07-23 10:09 | POSTANESTH ---
Post Anesthetic Evaluation Cardiovascular Status: Normal, Stable, Similar to Pre-Op Cond Respiratory Status: Normal, Stable, Similar to Pre-op Cond. Level of Consciousness/Mental Status: Can Participate in Eval, Mildly Sleepy, Arousable Pain Control: Adequate, Prn Tx Ordered Nausea/Vomiting Control: Adequate, Prn Tx Ordered Complications Possibly Related to Anesthesia: None Noted
[2017-07-23] MEDS: ALLOPURINOL 300 MG TAB PO SCH (11:20)
[2017-07-23] MEDS: LIDOCAINE 4%/MENTHOL 1% PATCH TD SCH ×2 (11:25→14:45)
--- NOTE | 2017-07-23 13:12 | SOAPPROG ---
SOAP Progress Note Assessment/Plan: Assessment/Plan: 21 yo gentleman admitted w nonspecific low back pain dx w ALL 1. Abnormal CBC - Dx of acute lymphoblastic leukemia; FISH and molecular studies pending [facility] CMV+ so in future if needs blood products, will need to be irradiated but NOT CMV negative Hepatitis panel -ve Echo ok, Port placed LDH and uric acid elevated but declining Cont allopurinol and IVF (can decrease to 100ml/hr) pred stopped check tumor lysis labs daily (Phos, UA, CMP, LDH) no e/o neuro involvement If ALL, plan pediatric protocol CALGB 97824 vs clinical trial 2. left sided rib pain - CT chest done shows no destructive lesions better today VSS consider CXR today if worsens 3. thrombocytopenia - due to #1 over an hour spent w pt and other care coordinators 07/23/17 13:18 Subjective: No acute events MediPORT placed Objective: Vital Signs Temp Pulse Resp BP Pulse Ox 36.7 C 89 16 106/59 L 97 07/23/17 10:05 07/23/17 08:53 07/23/17 10:31 07/23/17 10:31 07/23/17 11:06 Laboratory Results 07/23/17 04:12 07/23/17 04:12 07/22/17 07/23/17 07/24/17 05:59 05:59 05:59 Intake Total 4554 1000 1000 Output Total 2600 3100 15 Balance 1954 -2100 985 PT 15.2 SEC (12.0-15.0) H 07/20/17 16:15 INR 1.18 (0.83-1.16) H 07/20/17 16:15 no change in exam today ICD10 Worksheet Patient Problems: Problems Problem Status Onset Back strain Acute
--- NOTE | 2017-07-23 14:18 | PDDCSUM ---
Discharge Summary Discharge Summary: DISCHARGE SUMMARY FOLLOW-UP ITEMS: 1. FISH and molecular studies pending DATE OF ADMISSION: 07/19/2017 DATE OF DISCHARGE: 07/23/2017 DISCHARGE DIAGNOSES: 1. New diagnosis of acute lymphoblastic leukemia 2. Acute tumor lysis syndrome 3. Suspected muscular pain left chest CONSULTATIONS: Oncology, General surgery PROCEDURES / IMAGING: Port placed 07/23/[address] of the abdomen demonstrating possible pneumatosis, does not correlate with clinical exam, has splenomegaly, hepatomegaly, mediastinal lymphadenopathy CT of the chest with IV contrast did not demonstrate pulmonary emboli CHIEF COMPLAINT: Acute back pain SUBJECTIVE: Patient's back pain is feeling symptomatically better, he continues to have left -sided anterior chest discomfort intermittently PHYSICAL EXAM ON DISCHARGE: Systolic blood pressure 110-130, heart rate 80-110, afebrile overnight, satting well on room air, net -2.1 L, mild tenderness over the left anterolateral chest intercostals, lungs are clear to auscultation bilaterally, alert awake oriented x3, no erythema, no induration, no tenderness around the port site LABS ON DISCHARGE: Uric acid 5.9, phosphorus 5.5, LDH 1200, ALT 130, AST 50, creatinine 0.8, BUN 15 , potassium 5.7, platelets 00101, hemoglobin 13.3, white blood count 5,400 HOSPITAL COURSE BY PROBLEM: 1. New diagnosis of acute lymphoblastic leukemia. The patient originally presented with back pain, most likely secondary to symptomatic splenomegaly, but originally found to have pneumatosis on abdominal CT and was admitted to the general surgery service for serial abdominal exams and monitoring. His clinical exam did not correlate to intra-abdominal perforation and no surgical intervention was required. Is not entirely clear why there was pneumatosis on his abdominal CT but no bowel perforation is suspected. That being said, his chest and abdomen CTs did demonstrate significant mediastinal lymphadenopathy, hepatomegaly, splenomegaly, and he had significant leukocytosis, thrombocytopenia as well as evidence of tumor lysis syndrome. Consequently, the patient was evaluated by Oncology, underwent a bone marrow biopsy, and his pathology came back consistent with acute lymphoblastic leukemia. His FISH and molecular studies are currently pending. Additional workup included CMV positive, so in the future if the patient is blood products, he will need to be irradiated but not CMV negative. His acute hepatitis panel was also negative. He had a port placed in preparation for chemotherapy. Echocardiogram was performed which demonstrated normal ejection fraction. Our oncology provider coordinated care with [facility] [[email or web address]], and the decision was made to transfer the patient to [facility] [[email or web address]] to receive ongoing care. This was approved by the receiving facilities oncologist. The current pediatric protocol includes CALGB 03940 versus clinical trial. 2. Acute tumor lysis syndrome. Evidenced by significantly elevated LDH, phosphorus, uric acid, potassium, most likely secondary to acute lymphoblastic leukemia. The patient was treated with high rate IV fluids up to 200 cc/hour, as well as allopurinol and prednisone. The patient's last dosage of prednisone was on 07/22. His IV fluids have been turned down to 100 cc/hour. His tumor lysis labs have been improving and should be monitored daily moving forward. 3. Suspected muscular pain. Patient has some pain in his left anterolateral chest which has developed after receiving echocardiogram, and is reproducible on physical exam in the lateral intercostals. I suspect that this is muscular contusion in the setting of pressure and thrombocytopenia, and the patient has responded supportively with a heating pad as well as Lidoderm patch. Consideration was made as to whether this could be symptomatic pulmonary embolism, in the setting of malignancy, but the patient is currently not hypoxic , not tachypneic, and his intermittent tachycardia is felt to be secondary to pain rather than secondary to venous thromboembolism. Additionally, the patient did have IV contrast with his CT scan of his chest, and no venous thromboembolism was found. If the patient does begin experiencing hypoxia or tachypnea, would recommend dedicated CT angio study. DISCHARGE MEDICATIONS: Please see official discharge medication reconciliation sheet in chart , continue allopurinol, IV fluids, pain medications, steroids at the discretion of the accepting team. DISCHARGE INSTRUCTIONS: Please begin chemotherapy as soon as deemed clinically possible. TIME SPENT: Greater than 30 minutes were spent on direct patient care, as well as discharge planning and preparation.
[2017-07-23 14:31] VITALS: BP 124/79
--- NOTE | 2017-07-23 15:14 | ASMTLACE ---
LACE Length of stay for Answers: 3 days current admission Comorbidities - select Answers: Any tumor (including all that apply lymphoma or leukemia) Other Notes: h/o asthma # of Emergency department Answers: 1-2 visits in the last 6 months Score: 7 Date Signed: 07/23/2017 03:13 PM Electronically Signed By:Zee Lovelace RN
--- NOTE | 2017-07-25 17:59 | GOP ---
[f rep st] OPERATIVE REPORT DATE OF OPERATION: 07/23/2017 SURGEON: Francis Patricio MD PRODUCTION CONTROLLER: There was no minister assistant. PREOPERATIVE DIAGNOSIS: Leukemia. POSTOPERATIVE DIAGNOSIS: Leukemia. PROCEDURE PERFORMED: Left subclavian port placement with fluoroscopic guidance. FINDINGS: Patient was found with good catheter position and good flow. DESCRIPTION OF PROCEDURE: Patient was taken to the operating room where he received satisfactory gen eral laryngeal mask anesthesia by Dr. Trejo. He was placed in supine position, prepped and draped in the usual sterile fashion. Using 0.5% Marcaine local infiltration, a direct left subclavian stick w as made. A guidewire was introduced. Position was confirmed with fluoroscopy. A subcu pocket was m victor manuel in the 2nd intercostal space. Port tubing was passed from that pocket to the subclavian insertio n site. It was trimmed to the appropriate length using fluoroscopic guidance and then introduced via the introducer sheath and dilator system into the right atrium. Good backflow was achieved. The ca theter was flushed with heparin saline, and the port was secured to the fascia with 3-0 Vicryl. Pock et was closed with 3-0 Vicryl for the subcu and 4-0 Prolene subcuticular stitch for the skin. The en trance site was closed with a 4-0 Prolene mattress suture. All areas had been infiltrated with 0.5% Marcaine. Tolerated procedure well. Taken to recovery room in good condition. No complications. Had appropriate vital signs. /[id number]/MODL
== END 2017-07-23 15:00 | disposition designated cancer center or children's hospital (05) | DRG 834 ==
LOC: OBSVTOIN 07-20 02:41 → INTOOBSV 07-20 02:41 → F2W 07-20 03:23 → F1N 07-21 16:06
PROVIDERS: ADMIT Surgery; ATTEND Internal Medicine
PROC: 07DR3ZX Extraction of Iliac Bone Marrow, Percutaneous Approach, Diagnostic (ICD-10-PCS; 2017-07-21)
PROC: 02H633Z Insertion of Infusion Device into Right Atrium, Percutaneous Approach (ICD-10-PCS; principal; 2017-07-23 08:30)
PROC: 0JH60WZ Insertion of Totally Implantable Vascular Access Device into Chest Subcutaneous Tissue and Fascia, Open Approach (ICD-10-PCS; principal; 2017-07-23 08:30)
DX: C91.00 Acute lymphoblastic leukemia not having achieved remission (principal); E88.3 Tumor lysis syndrome; R07.89 Other chest pain; K63.89 Other specified diseases of intestine; D69.59 Other secondary thrombocytopenia
CPT/HCPCS: 85060-90; 86644-90; 86664-90; 86665-90; 88184-90; 88185-91; 88237-90; 88262-90; 96374; C1788; G0378; G0472; J0690; J1170; J1335; J1642; J2060; J2250; J2704; J3010; J7512; Q9967

== ENCOUNTER 2018-04-21 17:47 | Emergency (ER) | payer MEDICAID, OTHER ==
--- NOTE | 2018-04-21 18:19 | EDPHY ---
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 About 3 hr ago today developed diffuse joint pains including between his shoulder blades and back, in his elbows and joints and knees and in his groin. Not associated with vomiting or diarrhea or chest pain or shortness of breath. REVIEW OF SYSTEMS: Eye: no change in vision ENT: no sore throat Cardiac: no chest pain or syncope Pulmonary: no cough or SOB Abdomen: no vomiting, diarrhea, abdominal pain Musculoskeletal: HPI Skin: no rash Neuro: no headache Constitutional: no fever : no urinary symptoms A comprehensive 10 point review of systems is otherwise negative aside from elements mentioned in the history of present illness. 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 Eyes: No scleral icterus. ENT, Mouth: Normal mucous membranes. Respiratory: Normal respiratory effort, breath sounds equal, lungs are clear to auscultation. Cardiovascular: Regular rate and rhythm. Gastrointestinal: Abdomen is soft and non tender. Neurological: Alert, face symmetric, normal motor and sensory in extremities. Skin: Warm and dry, no rashes. Port in place and site is clean dry and intact. Musculoskeletal: Does not have joint swelling or effusion, ambulatory. Psychiatric: Not agitated. Emergency Department course/MDM: Heart rate noted 111 afebrile. Dilaudid 0.5, saline hydration, labs to include CBC and comprehensive panel. 824pm: discussed with [facility] oncology, Dr. Larios, recommends discharge if CK not elevated. 0: CPK normal, results discussed with the patient, discharge home with oral oxycodone, no nonsteroidals. He says he feels better at this time. Noted to be neutropenic but not febrile. Smoking Status: Never smoked Constitutional: Initial Vital Signs Temperature (C) 36.7 C 04/21/18 18:00 Heart Rate 111 H 04/21/18 18:00 Respiratory Rate 18 04/21/18 18:00 Blood Pressure 115/97 H 04/21/18 18:00 O2 Sat (%) 92 04/21/18 18:00 O2 Delivery Mode Nasal Cannula O2 (L/minute) 2 Allergies/Adverse Reactions: No Known Allergies Allergy (Unverified 04/21/18 17:58) Home Medications: Medication Instructions Recorded oxyCODONE IR [Oxycodone Ir (*)] 5 mg PO Q4HRS PRN tab 07/23/17 Advil 04/21/18 Flexeril 10 MG (*) 04/21/18 Tylenol 04/21/18 Medical Decision Making Differential Diagnosis: Differential considered including but not limited to medication side effect, rhabdomyolysis, tumor lysis syndrome, metabolic abnormality - Data Points Laboratory Results: Laboratory Results 04/21/18 18:50 04/21/18 18:50 04/21/18 04/21/18 04/21/18 18:50 18:50 16:50 WBC 1.66 10^3/uL L 10^3/uL (3.80-9.50) RBC 3.40 10^6/uL L 10^6/uL (4.40-6.38) Hgb 11.6 g/dL L g/dL (13.7-17.5) Hct 33.4 % L % (40.0-51.0) MCV 98.2 fL fL (81.5-99.8) MCH 34.1 pg pg (27.9-34.1) MCHC 34.7 g/dL g/dL (32.4-36.7) RDW 15.7 % H % (11.5-15.2) Plt Count 89 10^3/uL L 10^3/uL (150-400) MPV 12.0 fL H fL (8.7-11.7) Neut % (Auto) 19.2 % L % (39.3-74.2) Lymph % (Auto) 63.3 % H % (15.0-45.0) [place] % (Auto) 15.1 % H % (4.5-13.0) Eos % (Auto) 0.0 % L % (0.6-7.6) Baso % (Auto) 0.6 % % (0.3-1.7) Nucleat RBC Rel Count 24.1 % H % (0.0-0.2) Absolute Neuts (auto) 0.32 10^3/uL L 10^3/uL (1.70-6.50) Absolute Lymphs (auto) 1.05 10^3/uL 10^3/uL (1.00-3.00) Absolute Monos (auto) 0.25 10^3/uL L 10^3/uL (0.30-0.80) Absolute Eos (auto) 0.00 10^3/uL L 10^3/uL (0.03-0.40) Absolute Basos (auto) 0.01 10^3/uL L 10^3/uL (0.02-0.10) Absolute Nucleated RBC 0.40 10^3/uL H 10^3/uL (0-0.01) Immature Gran % 1.8 % H % (0.0-1.1) Immature Gran # 0.03 10^3/uL 10^3/uL (0.00-0.10) RBC/WBC/PLT Morphology TNP Platelet Estimate TNP Smear Review By Pending Sodium 134 mEq/L L mEq/L (135-145) Potassium 4.4 mEq/L mEq/L (3.5-5.2) Chloride 98 mEq/L mEq/L (97-110) Carbon Dioxide 29 mEq/l mEq/l (22-31) Anion Gap 7 mEq/L mEq/L (6-14) BUN 42 mg/dL H mg/dL (7-23) Creatinine 1.0 mg/dL mg/dL (0.7-1.3) Estimated GFR > 60 Glucose 101 mg/dL H mg/dL (70-100) Calcium 8.9 mg/dL mg/dL (8.5-10.4) Total Bilirubin 1.3 mg/dL mg/dL (0.1-1.4) AST 57 IU/L IU/L (17-59) ALT 183 IU/L H IU/L (21-72) Alkaline Phosphatase 94 IU/L IU/L (38-126) Creatine Kinase 38 IU/L IU/L (0-224) Total Protein 6.2 g/dL L g/dL (6.3-8.2) Albumin 3.7 g/dL g/dL (3.5-5.0) Medications Given: Discontinued Medications Hydrocodone Bitart/Acetaminophen ([place] 5/325mg Prepack#6) 1 btl TAKEHOME EDNOW ONE Stop: 04/21/18 20:44 Last Admin: 04/21/18 20:49 Dose: 1 btl Heparin Sodium (Porcine) (Heparin Lock Flush) 500 unit IVP EDNOW ONE Stop: 04/21/18 20:55 Last Admin: 04/21/18 20:57 Dose: 500 unit Hydromorphone HCl (Dilaudid) 0.5 mg IVP EDNOW ONE Stop: 04/21/18 18:33 Last Admin: 04/21/18 19:04 Dose: 0.5 mg Sodium Chloride (Ns) 1,000 mls @ 0 mls/hr IV EDNOW ONE; Wide Open PRN Reason: Protocol Stop: 04/21/18 18:33 Last Admin: 04/21/18 19:00 Dose: 1,000 mls Sodium Chloride (Ns) 1,000 mls @ 0 mls/hr IV EDNOW ONE; Wide Open PRN Reason: Protocol Stop: 04/21/18 18:33 Last Admin: 04/21/18 19:08 Dose: 1,000 mls Departure - Departure Disposition: Home, Routine, Self-Care Clinical Impression: Muscle ache Condition: Good Instructions: Hydrocodone/Acetaminophen (By mouth), Musculoskeletal Pain (ED) Additional Instructions: Return immediately if you develop a fever. Oxycodone for pain, no nonsteroidal such as aspirin Motrin or ibuprofen. Referrals: NONE *PRIMARY CARE P,. [Primary Care Provider] - As per Instructions (Dr. Larios or your oncology clinic at [facility])
[2018-04-21] MEDS ORDERED: NS 1,000 ML IV ONE ×2 (18:32)
[2018-04-21] MEDS ORDERED: HYDROmorphONE/DILAUDID 2 MG/ML INJ IVP ONE (18:32)
[2018-04-21 19:46] LABS: PLATELET COUNT 89 10^3/uL (150-400)
[2018-04-21 20:35] LABS: CREATINE KINASE 38 IU/L (0-224)
[2018-04-21] MEDS ORDERED: HYDROCOD/APAP 5/325 PREPACK#6 BTL TAKEHOME ONE (20:43)
[2018-04-21 21:04] VITALS: BP 123/72
== END 2018-04-21 21:03 | disposition home or self-care (01) ==
DX: M79.18 Myalgia, other site (principal); C91.00 Acute lymphoblastic leukemia not having achieved remission
CPT/HCPCS: 96374; J1170; J1642

== ENCOUNTER 2018-04-22 15:49 | Emergency (ER) | payer OTHER ==
[2018-04-22] MEDS ORDERED: HYDROmorphONE/DILAUDID 2 MG/ML INJ IVP ONE (16:15)
[2018-04-22] MEDS ORDERED: ONDANSETRON 4 MG/2 ML VIAL IVP ONE (16:15)
[2018-04-22] MEDS ORDERED: NS 1,000 ML IV ONE (16:15)
--- NOTE | 2018-04-22 16:15 | EDPHY ---
H & P Stated Complaint: Back/joint pain Source: Patient, RN/MD, Old records Exam Limitations: No limitations - Personal History Current Tetanus/Diphtheria Vaccine: Yes Tetanus Vaccine Date: 2012 - Medical/Surgical History Hx Asthma: Yes Hx Chronic Respiratory Disease: No Hx Diabetes: No Hx Cardiac Disease: No Hx Renal Disease: No Hx Cirrhosis: No Hx Alcoholism: No Hx HIV/AIDS: No Hx Splenectomy or Spleen Trauma: No Other PMH: leukemia, asthma - Social History Smoking Status: Never smoked Time Seen by Provider: 04/22/18 16:10 HPI/ROS: HPI: This is a 22-year-old male who presents with Chief Complaint: Lower Back and right hip pain Location: Lower back, right hip Quality: Pain Duration: Days Signs and Symptoms: No bleeding, no radiation, no numbness, no weakness, no tingling, no incontinence, + decreased range of motion, no swelling, + pain, no fever Timing: Chronic Severity: 12/15 Context: Patient has a history of ALL diagnosed in July 2017, followed by [facility] Dr. Kincaid presents with complaints of lower back pain and right hip pain. Patient was seen in the emergency room yesterday with unremarkable laboratory studies, given IV fluids and IV pain medication. Patient reports that the IV pain medication helps his pain but the oxycodone 5 mg that he took at 3:30 p.m. Approximately 45 min prior to arrival and a total of 4 tablets within 24 hr has not helped his pain. He has a follow-up appointment on Wednesday. Denies change in bowel or bladder habits, fever, radiation, weakness. Modifying Factors: See above Comment: ROS: A comprehensive 10 system review of systems is otherwise negative aside from elements mentioned in the history of present illness. MEDICAL/SURGICAL/SOCIAL HISTORY: Medical history: ALL, asthma Surgical history: Denies Social history: Disabled. Lives with parents. CONSTITUTIONAL: Polite and cooperative, young adult male, family at bedside, awake and alert, no obvious distress HEENT: Atraumatic and normocephalic. NECK: supple, no midline tenderness Cardiovascular: Normal S1/S2, regular rate, regular rhythm, without murmur rub or gallop. PULMONARY/CHEST: Port in place and site is clean, dry and intact. Symmetrical and nontender. Clear to auscultation bilaterally. Good air movement. No accessory muscle usage. ABDOMEN: Soft, nondistended, nontender. PELVIC: Mild pain with rocking; bilateral hips flexion 125 degrees, extension 30 degrees, right mild pain internal rotation and right pain external rotation. BACK: Moderate midline tenderness, no paraspinous spasm, deep tendon reflexes 2 /2, moderate pain with straight leg raise, No foot drop. Achilles reflexes are equal bilaterally. Able to walk on heels and toes without difficulty. EXTREMITIES: 2/2 pulses, strength 5/5, DIP/PIP/MCP flexion/extension intact with good light touch sensation. no deformities, no clubbing, no cyanosis or edema. NEUROLOGICAL: no focal neuro deficits. GCS 15. Light touch sensation intact. SKIN: Warm and dry, no erythema. no rash. Good capillary refill. (Marilyn Davila) Constitutional: Initial Vital Signs Temperature (C) 36.7 C 04/22/18 15:52 Heart Rate 102 H 04/22/18 15:52 Respiratory Rate 18 04/22/18 15:52 Blood Pressure 96/59 L 04/22/18 15:52 O2 Sat (%) 95 04/22/18 15:52 O2 Delivery Mode Room Air Allergies/Adverse Reactions: No Known Allergies Allergy (Unverified 04/22/18 15:55) Home Medications: Medication Instructions Recorded oxyCODONE IR [Oxycodone Ir (*)] 5 mg PO Q4HRS PRN tab 07/23/17 Advil 04/21/18 Flexeril 10 MG (*) 04/21/18 Tylenol 04/21/18 HYDROmorphone HCL [Dilaudid 2 mg 1 - 2 mg PO Q6 PRN #24 tab 04/22/18 (*)] Medical Decision Making - Diagnostics Imaging Results: Imaging Impressions Lumbar Spine X-Ray 04/22/18 17:06 Impression:Stable negative lumbar spine radiographs. ED Course/Re-evaluation: Vital signs reviewed and show mild tachycardia. no pyrexia. IV access, laboratory studies ordered Given 1 L normal saline, IV Dilaudid 1 mg, IV Zofran 4 mg No neurological deficits to warrant emergent MRI imaging 1704: ED [facility]. Spoke with Dr. Quiroz's who requests lumbosacral x-ray to rule out pathological fracture. She is okay with him being discharged on Dilaudid. She requested update on the lumbosacral results be paged to her at [phone]. Written for prescription of Dilaudid to last him until Wednesday. 1708: End of shift. Signed over to Dr. Moreira lumbosacral x-ray results and final disposition. No signs of neurovascular compromise/tenting of skin/compartment syndrome/ extremities and joints examined above and below area of concern and are neurovascularly intact/cauda equina syndrome. This patient was seen under the supervision of my secondary supervising physician. I evaluated care for this patient with attending. Discussed this patient with Dr. Moreira. (Marilyn Davila) Differential Diagnosis: Differential diagnosis includes but is not limited to muscular pain, tumor lysis , dehydration. (Marilyn Davila) Other Provider: PHYSICIAN DOCUMENTATION: The patient was evaluated and managed by the Physician Typing Teacher and myself. I have reviewed the chart and agree with the findings and plan of care as documented. In addition, I examined the patient myself at 1732. History confirmed as nontraumatic muscle pain seems yesterday but still painful. Physical findings as follows: Good range of motion of joints, abdomen soft nontender, no meningeal signs. Normal mental status. Discussed with Dr. Quiroz [facility] at 5:30 p.m., lumbar spine x-ray reviewed and is negative personally interpreted and discussed with her. They will see him next Wednesday in the office, recommends discharge with symptomatic treatment for likely steroid related muscle pain. Negative CPK. I am the secondary supervising physician. (Adolfo Moreira) - Data Points Laboratory Results: Laboratory Results 04/22/18 16:25 04/22/18 04/22/18 16:25 16:25 WBC Pending RBC Pending Hgb Pending Hct Pending MCV Pending MCH Pending MCHC Pending RDW Pending Plt Count Pending MPV Pending Neut % (Auto) Pending Lymph % (Auto) Pending [place] % (Auto) Pending Eos % (Auto) Pending Baso % (Auto) Pending Nucleat RBC Rel Count Pending Absolute Neuts (auto) Pending Absolute Lymphs (auto) Pending Absolute Monos (auto) Pending Absolute Eos (auto) Pending Absolute Basos (auto) Pending Absolute Nucleated RBC Pending Immature Gran % Pending Immature Gran # Pending Sodium 133 mEq/L L mEq/L (135-145) Potassium 4.1 mEq/L mEq/L (3.5-5.2) Chloride 101 mEq/L mEq/L (97-110) Carbon Dioxide 27 mEq/l mEq/l (22-31) Anion Gap 5 mEq/L L mEq/L (6-14) BUN 29 mg/dL H mg/dL (7-23) Creatinine 0.8 mg/dL mg/dL (0.7-1.3) Estimated GFR > 60 Glucose 81 mg/dL mg/dL (70-100) Calcium 8.7 mg/dL mg/dL (8.5-10.4) Total Bilirubin 1.0 mg/dL mg/dL (0.1-1.4) Conjugated Bilirubin 0.3 mg/dL mg/dL (0.0-0.5) Unconjugated Bilirubin 0.7 mg/dL mg/dL (0.0-1.1) AST 61 IU/L H IU/L (17-59) ALT 161 IU/L H IU/L (21-72) Alkaline Phosphatase 82 IU/L IU/L (38-126) Creatine Kinase 23 IU/L IU/L (0-224) Total Protein 5.6 g/dL L g/dL (6.3-8.2) Albumin 3.1 g/dL L g/dL (3.5-5.0) Medications Given: Discontinued Medications Hydromorphone HCl (Dilaudid) 1 mg IVP EDNOW ONE Stop: 04/22/18 16:16 Last Admin: 04/22/18 16:33 Dose: 1 mg Sodium Chloride (Ns) 1,000 mls @ 0 mls/hr IV EDNOW ONE; Wide Open PRN Reason: Protocol Stop: 04/22/18 16:16 Last Admin: 04/22/18 16:24 Dose: 1,000 mls Departure - Departure Disposition: Home, Routine, Self-Care Clinical Impression: Lumbar back pain ALL (acute lymphoblastic leukemia) Qualifiers: Leukemia Active/Remission status: without remission Qualified Code(s): C91.00 - Acute lymphoblastic leukemia not having achieved remission Condition: Good Instructions: Acute Lymphocytic Leukemia (DC) Additional Instructions: Please take 1-2 mg Dilaudid every 6 hours as needed for severe/breakthrough pain. Keep follow-up appointment on Wednesday with [facility]cology at [facility]. Referrals: OTHER HEALTH CARE ME,. [Instrument Technician] - As per Instructions (Oncologist, Dr. Kincaid, at [facility]) Prescriptions: HYDROmorphone HCL [Dilaudid 2 mg (*)] 1 - 2 mg PO Q6 PRN #24 tab PRN Reason: Pain, Breakthrough
[2018-04-22 16:52] LABS: CREATINE KINASE 23 IU/L (0-224)
[2018-04-22 17:44] LABS: PLATELET COUNT 59 10^3/uL (150-400)
[2018-04-22] MEDS ORDERED: HYDROmorphONE/DILAUDID 2 MG TAB PO ONE (17:50)
[2018-04-22 19:09] VITALS: BP 106/76
== END 2018-04-22 19:07 | disposition home or self-care (01) ==
DX: M54.9 Dorsalgia, unspecified (principal); M25.551 Pain in right hip; C91.00 Acute lymphoblastic leukemia not having achieved remission; E86.9 Volume depletion, unspecified
CPT/HCPCS: 96374; J1170